=== PATIENT | male | born 2000 | race Caucasian/White ===

== ENCOUNTER 2018-09-02 11:09 | Emergency (ER) | payer MEDICAID ==
--- NOTE | 2018-09-02 11:23 | C.PDOC ---
History Of Present Illness ABD BLOATING, PAIN SINCE LAST NIGHT. MULT BILIOUS VOMITING, RESOLVED SINCE LAST NIGHT. ABLE TO EAT CHICKEN PARM SANDWICH LAST NIGHT WO DIFF. STILL W RESIDUAL PAIN "FROM ALL THE VOMITING". NO FEVER, DIARRHEA. NO PRIOR ABD SURG. NO FEVER EXAM NEG MDM PT DOES NOT WANT ADDL TESTING AT THIS TIME EXCEPT XRAY. NO S/S ACUTE ABD, PROB VIRAL GASTRITIS NOW RESOLVED. Time Seen by Provider: 09/02/18 11:19 Chief Complaint (Nursing): Abdominal Pain History Per: Patient History/Exam Limitations: no limitations Onset/Duration Of Symptoms: Days Current Symptoms Are (Timing): Still Present Severity: Moderate Associated Symptoms: Vomiting. denies: Fever, Chills, Diarrhea Past Medical History Reviewed: Historical Data, Nursing Documentation, Vital Signs Vital Signs: Last Vital Signs Temp 98.5 F 09/02/18 11:14 Pulse 63 09/02/18 11:14 Resp 18 09/02/18 11:14 BP 132/80 09/02/18 11:14 Pulse Ox 98 09/02/18 11:14 - Medical History PMH: No Chronic Diseases Other Surgeries: Hx of surgeries Family History: States: Unknown Family Hx - Social History Hx Alcohol Use: Yes Hx Substance Use: No - Immunization History Hx Tetanus Toxoid Vaccination: No Hx Influenza Vaccination: No Hx Pneumococcal Vaccination: No Review Of Systems Except As Marked, All Systems Reviewed And Found Negative. Constitutional: Negative for: Fever, Chills Gastrointestinal: Positive for: Vomiting, Abdominal Pain. Negative for: Diarrhea Physical Exam - Physical Exam Appears: Non-toxic, No Acute Distress Skin: Normal Color, Warm, Dry Head: Atraumatic, Normacephalic Eye(s): bilateral: Normal Inspection Oral Mucosa: Moist Cardiovascular: Rhythm Regular Respiratory: Normal Breath Sounds, No Rales, No Rhonchi, No Wheezing Gastrointestinal/Abdominal: Normal Exam, Soft, No Tenderness, No Guarding, No Rebound Neurological/Psych: Oriented x3, Normal Speech ED Course And Treatment O2 Sat by Pulse Oximetry: 98 (RA) Pulse Ox Interpretation: Normal - Other Rad ABD X-Ray: Interpreted by Me (FOS) Reevaluation Time: 12:13 Reassessment Condition: Unchanged (REMAINS ASYMPT, COMFORTABLE. ADVISED DIET MODIFICATION FOR CONSTIPATION [place]) Medical Decision Making Medical Decision Making: Plan: --X-Ray-Abd Disposition Counseled Patient/Family Regarding: Studies Performed, Diagnosis, Need For Followup, Rx Given - Disposition Referrals: your,pmd [Other] Disposition: HOME/ ROUTINE Disposition Time: 12:11 Condition: IMPROVED Prescriptions: Ondansetron ODT [Zofran ODT] 4 mg PO TID PRN #12 odt PRN Reason: Nausea/Vomiting Instructions: Constipation, Adult (DC), Nausea and Vomiting, Adult (DC) Forms: [employer] Connect (Uruguayan) - Clinical Impression Clinical Impression: Vomiting, Abdominal colic - Scribe Statement The provider has reviewed the documentation as recorded by the Lillie Alex Provider Attestation: All medical record entries made by the Tyeibernesto were at my direction and personally dictated by me. I have reviewed the chart and agree that the record accurately reflects my personal performance of the history, physical exam, medical decision making, and the department course for this patient. I have also personally directed, reviewed, and agree with the discharge instructions and disposition.
[2018-09-02 11:41] VITALS: O2SAT 98; BMI 26.6
[2018-09-02 12:12] VITALS: BP 125/69; PULSE 68; RESP 20; TEMP 98.4
--- NOTE | 2018-09-02 13:54 | RAD ---
Date of service: 09/02/2018 HISTORY: Abdominal pain and bloating COMPARISON: None available. FINDINGS: BOWEL: There is moderate amount of stool in the colon and rectum. No obstruction. No free air. BONES: Normal. OTHER FINDINGS: None. IMPRESSION: Moderate stool burden in the colon and rectum. No bowel obstruction.
== END 2018-09-02 12:15 | disposition home or self-care (01) ==
LOC: C.ER 11:09
DX: R11.10 Vomiting, unspecified (principal); R10.84 Generalized abdominal pain

== ENCOUNTER 2018-11-25 15:34 | Emergency (ER) | payer OTHER, MEDICAID ==
[2018-11-25 15:34] VITALS: BMI 26.6
[2018-11-25 15:49] VITALS: BP 133/67; PULSE 68; RESP 18; TEMP 98; O2SAT 99
--- NOTE | 2018-11-25 16:27 | RAD ---
PROCEDURE: Left Ankle Radiographs. Three views. HISTORY: injury COMPARISON: None available. FINDINGS: BONES: No acute displaced fracture. JOINTS: No dislocation. SOFT TISSUES: Soft tissue swelling. No evidence of radiopaque foreign body. OTHER FINDINGS: None. IMPRESSION: Soft tissue swelling. No acute displaced fracture, dislocation, or significant joint effusion identified. If symptoms persist or if there is clinical concern, x-ray follow-up in 7-10 days should be considered.
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
== END 2018-11-25 16:47 | disposition home or self-care (01) ==
LOC: C.ER 15:34
DX: S93.402A Sprain of unspecified ligament of left ankle, initial encounter (principal); V13.0XXA Pedal cycle driver injured in collision with car, pick-up truck or van in nontraffic accident, initial encounter; Y93.55 Activity, bike riding